=== PATIENT | male | born 1965 | race Caucasian/White ===

== ENCOUNTER 2019-01-19 16:02 | Emergency (ER) | payer SELFPAY ==
[2019-01-19 16:10] VITALS: BP 181/98; PULSE 70; RESP 17; TEMP 36.6; O2SAT 97; BMI 25.0
[2019-01-19 16:48] LABS: Bacteria Urine None Seen
[2019-01-19 16:55] LABS: RBC Urine 5-10/HPF (0-5/HPF); Squamous Epithelial Cell Urine 0-1 /HPF (0-5/HPF); WBC Urine 1-5/HPF (0-5/HPF)
[2019-01-19 16:56] LABS: Culture Indicated Urine Cult Not Indicated; Mucus Urine 1+ (Negative)
[2019-01-19] MEDS: ONDANSETRON 4 MG/2 ML INJ IV (17:36)
[2019-01-19] MEDS: KETOROLAC 60 MG/2 ML VIAL 30 MG IV (17:36)
[2019-01-19] MEDS: SODIUM CHLORIDE 0.9% 1,000 ML 1000 ML IV (17:36)
--- NOTE | 2019-01-19 17:50 | DI.RAD.S_ITS ---
PROCEDURE: XR KUB INDICATIONS: L flank pain, hx of multiple kidney stones TECHNIQUE: One view of the abdomen acquired. COMPARISON: None. FINDINGS: Surgical changes and devices: None. Bowel: Bowel gas pattern is normal. Soft tissues: No suspicious abdominal calcifications. Multiple small calcifications are noted in bilateral lower pelvis likely represent phleboliths. Visualized solid organ contours appear normal in size. Bones: No suspicious bony lesions. IMPRESSION: No definite renal calcification is seen. Likely phleboliths in lower pelvis. Dictated by: Jhony French M.D. on 01/19/2019 at 18:28 Approved by: Jhony French M.D. on 01/19/2019 at 18:30
[2019-01-19] MEDS: MORPHINE 4 MG/ML INJ IV (17:59)
[2019-01-19 18:09] VITALS: BP 151/82; PULSE 58; RESP 18; O2SAT 99
--- NOTE | 2019-01-19 18:39 | ED.MALEGU ---
HPI - Male Genitourinary <Britton LugoABRAHAN Nicole - Last Filed: 01/19/19 19:07> General Chief complaint: Urogenital-Male Stated complaint: Thinks he has a kidney stone Time Seen by Provider: 01/19/19 17:28 Source: patient Mode of arrival: Ambulatory Limitations: no limitations History of Present Illness HPI Narrative: This is a 53-year-old male, prior smoker, who presents to ED with significant other with chief complain of I think I have another kidney stone and reports left flank pain. Patient reports associated nausea and vomiting. Patient reports history of kidney stone for 8-10 times in the past and had passed all of days. Patient try to increase oral hydration and to Motrin but pain did not resolve and decided to come in to ED. patient denies history of urinary retention or blockage from kidney stone in the past. Patient denies fever or other urinary symptoms such as dysuria, urgency, hematuria or frequency. Patient denies abdominal, groin or testicular pain. Patient reports he has left medical insurance at this time. Related Data Home Medications Medication Instructions Recorded Confirmed ATENOLOL (Tenormin) 25 mg PO BID #0 02/26/07 FELODIPINE (Felodipine ER) 2.5 mg PO Q DAY #0 02/26/07 LISINOPRIL (Zestril / Prinivil) 20 mg PO Q DAY #0 02/26/07 Previous Rx's Medication Instructions Recorded hydrocodone-acetaminophen [[place]] 1 tab PO Q6H PRN #10 tab 01/19/19 ondansetron 4 mg PO Q8H PRN #10 tab 01/19/19 Allergies Allergy/AdvReac Type Severity Reaction Status Date / Time No Known Drug Allergies Allergy Verified 01/19/19 16:09 Review of Systems <Britton LugoBonnie [employer] - Last Filed: 01/19/19 19:07> Review of Systems Narrative: General: Denies fever, chills, fatigue, malaise, sweats. HEENT: Denies sinus pain, ear pain, sore throat, difficulty swallowing, dizziness. Respiratory: Denies dyspnea, cough, wheezing, hemoptysis, sputum. Cardiovascular: Denies chest pain, palpitations, orthopnea, edema. Gastrointestinal: Reports nausea and vomiting. Denies abdominal pain, diarrhea, constipation, melena. : See HPI Musculoskeletal: Denies weakness, joint pain or bony pain. Skin: Denies rash, skin lesions, or other. Neurologic: Denies weakness, headache, numbness, change in speech, confusion, seizures, incoordination. Psychiatric: No concerning psychosocial issues. 12-point review of systems is negative except for those stated above. Patient History <ABRAHAN Curry - Last Filed: 01/19/19 19:07> Medical History Kidney stone (Acute) Surgical History No pertinent past surgical history (Acute) Social History Smoking Status: Former smoker Smoking Status: Former smoker alcohol intake frequency: holidays/special occasions only Substance Use Type: marijuana Exam <ABRAHAN Curry - Last Filed: 01/19/19 19:07> Narrative Exam Narrative: GEN: Alert, oriented x 3, well appearing and nourished, and in no acute distress. Head: Normal cephalic, atraumatic. No scalp or temporal tenderness, palpable mass or rash. EYES: Pupils are equal, round, and reactive to light and accommodation. Extraocular muscles are intact bilaterally. There is no subconjunctival hemorrhage, exudate and sclera non-icteric. ENT: Bilateral auditory canals and tympanic membranes clear. Hearing grossly intact. Nose without bleeding, purulent discharge or deviation. Facial sinuses nontender to palpate. Mucous membrane moist, no mucosal lesion. Throat without erythema, tonsillar hypertrophy or exudate. Uvula in midline, airway patent. Neck: Trachea in midline. No JVD, non-tender without lymphadenopathy. No masses or thyroid megaly. Supple, non-tender and no meningeal signs. CARDIAC: Normal regular rate and rhythm without murmurs, gallops, or rubs. No chest wall tenderness. No peripheral edema, cyanosis or pallor. Capillary refill is less than 2 seconds. RESPIRATORY: Lungs are clear to auscultate bilaterally. No cough, wheezes, rales, or rhonchi. No stridor, respiratory distress, increase work of breathing, or accessary muscle used. ABD: Abdomen soft, nontender and non-distended. No guarding or rebound tenderness to palpate. Bowel sounds are normal in all 4 quadrants. There is no palpable masses or organomegaly. EXT: Full painless ROM of all extremities with no loss of sensation, strength, effusion or edema. SKIN: Warm, dry, normal color for patient. No erythema, lesions or rash over visible areas. BACK: Nontender without deformity or crepitance. Left flank tenderness to percuss. NEUROLOGICAL: Alert and oriented to place, time and person. Sensation and motor function intact bilaterally. No facial droops, dysphasia. PSYCHIATRIC: Good judgement and reason, without hallucinations, abnormal affect or abnormal behaviors during the examination. Initial Vital Signs Initial Vital Signs: Vital Signs Temperature 97.8 F 01/19/19 16:10 Pulse Rate 70 01/19/19 16:10 Respiratory Rate 17 01/19/19 16:10 Blood Pressure 181/98 H 01/19/19 16:10 Pulse Oximetry 97 01/19/19 16:10 <Melanie Freire DO - Last Filed: 01/19/19 19:50> Initial Vital Signs Initial Vital Signs: Vital Signs Temperature 97.8 F 01/19/19 16:10 Pulse Rate 70 01/19/19 16:10 Respiratory Rate 17 01/19/19 16:10 Blood Pressure 181/98 H 01/19/19 16:10 Pulse Oximetry 97 01/19/19 16:10 Course <ABRAHAN Curry - Last Filed: 01/19/19 19:07> Orders Ordered: ED Orders 01/19/19 16:15 Urine Microscopic Stat 01/19/19 17:50 XR KUB Stat Discontinued Medications Sodium Chloride (Normal Saline 0.9%) 1,000 mls @ 1,000 mls/hr IV BOLUS ONE Stop: 01/19/19 18:27 Last Infusion: 01/19/19 19:05 Dose: 0 mls/hr Documented by: Admin: 01/19/19 17:36 Dose: 1,000 mls/hr Documented by: GEOFF Ketorolac Tromethamine (Toradol) 30 mg IV NOW ONE Stop: 01/19/19 17:29 Last Admin: 01/19/19 17:36 Dose: 30 mg Documented by: GEOFF Morphine Sulfate (Morphine) 4 mg IV NOW ONE Stop: 01/19/19 17:51 Last Admin: 01/19/19 17:59 Dose: 4 mg Documented by: GEOFF Ondansetron HCl (Zofran) 4 mg IV NOW ONE Stop: 01/19/19 17:29 Last Admin: 01/19/19 17:36 Dose: 4 mg Documented by: GEOFF Vital Signs Vital signs: Vital Signs - 8 hr 01/19/19 16:10 01/19/19 18:09 01/19/19 19:19 Temperature 97.8 F Pulse Rate 70 58 L 56 L Respiratory Rate 17 18 18 Blood Pressure 181/98 H 117/52 L Blood Pressure [Left Arm] 151/82 H Pulse Oximetry 97 99 98 <Melanie Freire DO - Last Filed: 01/19/19 19:50> Orders Ordered: ED Orders 01/19/19 16:15 Urine Microscopic Stat 01/19/19 17:50 XR KUB Stat Discontinued Medications Sodium Chloride (Normal Saline 0.9%) 1,000 mls @ 1,000 mls/hr IV BOLUS ONE Stop: 01/19/19 18:27 Last Infusion: 01/19/19 19:05 Dose: 0 mls/hr Documented by: Admin: 01/19/19 17:36 Dose: 1,000 mls/hr Documented by: GEOFF Ketorolac Tromethamine (Toradol) 30 mg IV NOW ONE Stop: 01/19/19 17:29 Last Admin: 01/19/19 17:36 Dose: 30 mg Documented by: GEOFF Morphine Sulfate (Morphine) 4 mg IV NOW ONE Stop: 01/19/19 17:51 Last Admin: 01/19/19 17:59 Dose: 4 mg Documented by: GEOFF Ondansetron HCl (Zofran) 4 mg IV NOW ONE Stop: 01/19/19 17:29 Last Admin: 01/19/19 17:36 Dose: 4 mg Documented by: GEOFF Vital Signs Vital signs: Vital Signs - 8 hr 01/19/19 16:10 01/19/19 18:09 01/19/19 19:19 Temperature 97.8 F Pulse Rate 70 58 L 56 L Respiratory Rate 17 18 18 Blood Pressure 181/98 H 117/52 L Blood Pressure [Left Arm] 151/82 H Pulse Oximetry 97 99 98 MDM - Male Genitourinary <ABRAHAN Curry - Last Filed: 01/19/19 19:07> Differential Diagnosis Differential diagnosis: Likely other (Renal stone, UTI, kidney infection) Medical Records Attestation: I reviewed the patient's medical records. Lab Data Attestation: I reviewed the patient's lab results. Labs: Lab Results 01/19/19 Range/Units 16:15 Urine RBC 5-10/hpf H (0-5/HPF) Urine WBC 1-5/hpf (0-5/HPF) Ur Squamous Epith Cells 0-1 /hpf (0-5/HPF) Urine Bacteria None seen (None) Urine Mucus 1+ H (Negative) Ur Culture Indicated? Cult not indicated Urine Dip Bedside Urine Glucose Negative Bedside Urine Bilirubin - Negative Bedside Urine Ketone - Negative Urine Specific [place] 1.030 Bedside Urine Occult Blood +++ Bedside Urine Protein +/- 15 Bedside Urine Urobilinogen - Negative Bedside Urine Nitrite - Negative Bedside Urine Leukocytes - Negative Esterase Imaging Data XR-KUB: Radiologist's impression: [place] [address] XRay Report Signed Patient: Carlos Silva EMR#: [id number] : 1965Acct:[id number] Age/Sex: 53 / MDate of Service: 01/19/19 Loc: ED Accession Number: [id number] Procedure: XR KUB Ordering Provider: Britton Augustin PROCEDURE: XR KUB INDICATIONS: L flank pain, hx of multiple kidney stones TECHNIQUE: One view of the abdomen acquired. COMPARISON: None. FINDINGS: Surgical changes and devices: None. Bowel: Bowel gas pattern is normal. Soft tissues: No suspicious abdominal calcifications. Multiple small calcifications are noted in bilateral lower pelvis likely represent phleboliths. Visualized solid organ contours appear normal in size. Bones: No suspicious bony lesions. IMPRESSION: No definite renal calcification is seen. Likely phleboliths in lower pelvis. Dictated by: Jhony French M.D. on 01/19/2019 at 18:28 Approved by: Jhony French M.D. on 01/19/2019 at 18:30 [facility] Narrative Medical decision making narrative: This is a 53-year-old gentleman who presents to ED with chief complain of left flank pain which started today at 15 30 with history of multiple kidney stones in the past which he was able to pass. POC urine test shows occult hematuria. Patient declined CT scan today stating he feels like kidney stone as he experienced in the past and he is currently not having medical insurance and is concerned about medical bills. Patient was treated with IV fluid, Toradol, zofran and morphine and states pain improved. Patient agrees for x-ray test for KUB which does not show obvious renal stones today. Will treat patient presumptive for Kidney stone and patient is discharged to home with small dose of [place] and Zofran. Patient advised to hydrate well and strict return precautions were discussed with the patient such as but not limited to increasing flank pain, unable to void for prolonged time, symptoms for urinary retention, any worsening symptoms. Patient verbalized understanding and agrees with the treatment plan. <Melanie Freire, DO - Last Filed: 01/19/19 19:50> Lab Data Labs: Lab Results 01/19/19 Range/Units 16:15 Urine RBC 5-10/hpf H (0-5/HPF) Urine WBC 1-5/hpf (0-5/HPF) Ur Squamous Epith Cells 0-1 /hpf (0-5/HPF) Urine Bacteria None seen (None) Urine Mucus 1+ H (Negative) Ur Culture Indicated? Cult not indicated Urine Dip Bedside Urine Glucose Negative Bedside Urine Bilirubin - Negative Bedside Urine Ketone - Negative Urine Specific [place] 1.030 Bedside Urine Occult Blood +++ Bedside Urine Protein +/- 15 Bedside Urine Urobilinogen - Negative Bedside Urine Nitrite - Negative Bedside Urine Leukocytes - Negative Esterase Discharge Plan Departure Patient Disposition: Home Clinical Impression: Left renal stone Discharge Date/Time: 01/19/19 19:20 Instructions: DI for Kidney Stones Activity Restrictions/Additional Instructions: You have been diagnosed with [left flank pain and presumptive treating as kidney stone with history of multiple kidney stones in the past. Your urine test shows occult blood without signs of infection. You were treated with IV fluid, Toradol, Zofran and morphine and your symptoms improved. X-ray of KUB was obtained without renal stone seen today]. What to do: *Take your medications as directed. Please take [place] for severe pain. This may cause drowsiness so please take precaution such as not driving, drink alcohol or operating heavy equipments. It also can cause constipation so please take [id number] stool softener or high fiber diet. Please increase oral hydration. Take Zofran ODT as needed for nausea. You can take ibuprofen 600-800 mg 3 times a day as needed with food. *Follow up with your primary care provider in 2-3 days, call for an appointment. Let them know you were seen in the ED and that we asked you to be seen in follow up. *Return to ED if you have any new, worsening, or concerning symptoms, such as [chest pain, breathing difficulty, fever, unable to void, severe pain, with dark blood in her urine or any acute concerns]. Prescriptions: New hydrocodone-acetaminophen [[place]] 5-325 mg tablet 1 tab PO Q6H PRN (Reason: pain) Qty: 10 RF: 0 ondansetron 4 mg tablet,disintegrating 4 mg PO Q8H PRN (Reason: nausea and vomiting) Qty: 10 RF: 0 No Action ATENOLOL (Tenormin) 25 mg PO BID Qty: 0 RF: 0 FELODIPINE (Felodipine ER) 2.5 mg PO Q DAY Qty: 0 RF: 0 LISINOPRIL (Zestril / Prinivil) 20 mg PO Q DAY Qty: 0 RF: 0 Referrals: Diaz Yates MD [Primary Care Provider] -
[2019-01-19 19:19] VITALS: BP 117/52; PULSE 56; RESP 18; O2SAT 98
== END 2019-01-19 19:20 | disposition home or self-care (01) ==
PROVIDERS: Emergency Medicine; Emergency Provider Nurse Practitioner Family; PCP Family Medicine
DX: N20.0 Calculus of kidney (principal); Z87.442 Personal history of urinary calculi; I10 Essential (primary) hypertension; R11.2 Nausea with vomiting, unspecified
CPT/HCPCS: 74018; 81003; 81015; 96361; 96374; 96375; 99281; 99284; J1885; J2270; J2405